=== PATIENT | female | born 1950 | race Caucasian/White ===

== ENCOUNTER → 2021-05-03 | Outpatient (CLI) | payer OTHER ==
[~2021-05-03] MED LIST: BAYER PLUS 500500 MG PO; HYDROCHLOROTH12.5 M2 PO; LISINOPRIL10 MG PO; METFORMIN HCL500 MG PO; ROSUVASTATIN CAL5 MG PO
== END ==
LOC: LAB 05:35
PROVIDERS: ATTEND Student in an Organized Health Care Education/Training Program
DX: Z01.812 Encounter for preprocedural laboratory examination (principal); Z20.822 Contact with and (suspected) exposure to COVID-19

== ENCOUNTER → 2021-05-05 | Outpatient (CLI) | payer OTHER ==
[~2021-05-05] VITALS: Ht 149.9 cm; Wt 124.7 kg
--- NOTE | ~2021-05-05 | P ---
[facility] [place] [address] PROCEDURE REPORT Name: RADHA JUDGE Room #: REG IRMA DozierJuaquin#: [id number] Admission: 05/05/21 Attend Phys: Wayne Mcgovern Discharge: Date of : 50 Report #: [id number] THIS REPORT FOR: cc: Marely Hopson MD,Wayne Theodore MD, MD ~ cc: Marely Hopson MD DATE OF SERVICE: 05/05/2021 PROCEDURE PERFORMED: Colonoscopy with biopsies. HISTORY OF PRESENT ILLNESS: The patient is a 70-year-old female, last colonoscopy was in 2009. Mild diverticulosis was noted, otherwise negative. No family history of colon cancer. The patient denies any symptoms. Plan is for colonoscopy. DESCRIPTION OF PROCEDURE: The risks and benefits of the procedure were explained to the patient, those risks including but not limited to bleeding, perforation and the risk of sedation. She understood these risks and gave informed consent. Sedation was given using propofol per Anesthesia. Next, a digital rectal exam was initially performed, which was normal. Next, using a standard Olympus colonoscope, the scope was placed in the patient's anus and advanced under direct vision to the cecum. The overall prep was good. The cecum and ileocecal valve were normal in appearance. The ascending colon was normal. In the transverse colon, a 3 mm sessile polyp was noted. This was removed with cold forceps, otherwise normal. The descending colon was normal. A few small scattered diverticula were noted in the sigmoid colon. No evidence of inflammation. The rectal mucosa was normal. On retroflexion, small nonbleeding internal hemorrhoids were noted. The scope was then withdrawn and the procedure terminated. The patient tolerated the procedure well. IMPRESSION: 1. Small transverse colon polyp. 2. Sigmoid diverticulosis. 3. Internal hemorrhoids. 4. Otherwise, normal colonoscopy. RECOMMENDATIONS: 1. Await biopsy results. 2. If the polyp is hyperplastic, repeat in 10 years; if adenomatous polyp, repeat in 5 years. [facility] [address] [place] [address] PROCEDURE REPORT Name: NURADHA SADIQ Room #: REG [facility]OSPITALHerminio#: [id number] Admission: 05/05/21 Attend Phys: Wayne Mcgovern Discharge: Date of : 50 Report #: [id number] Thank you for allowing me to participate in her care. By: [id number] [id number] Wayne Heaton MD /nt
--- NOTE | 2021-05-10 13:07 | PATH ---
[facility] [address] [place] [address] PATHOLOGY RPT PROCEDURE Name: PAIGE JUDGE Room #: REG [facility]OSPITALHelen.#: [id number] Admission: 05/05/21 Date of : 50 Discharge: Report #: [id number] Path Case #: [id number] [facility] Accession Number: [id number] . 01 Material submitted: . colon - TRANSVERSE COLON POLYP. Modifiers: transverse . 01 Clinical history: . COLONOSCOPY SCREENING, COLON CANCER . 02 Diagnosis: Transverse colon polyp, polypectomy: - Polypoid colonic mucosa with melanosis coli. - Negative for adenomatous change or malignancy. (ANK:tadeo; 05/07/2021) QMS 05/07/2021 [facility] Local . 02 Electronically signed: . Mary Clayton MD, Pathologist NPI- [id number] . 01 Gross description: . Received in formalin labeled "Franck, Paige, transverse polyp" is a fragment of carranza-brown soft tissue measuring 0.3 x 0.3 x 0.1 cm. The specimen is submitted entirely in A1. ([facility]; 05/06/2021) [facility]/06/2021 [facility] Local . 02 Pathologist provided ICD-10: K63.89 . 02 CPT . 790904 Specimen Comment: A courtesy copy of this report has been sent to [phone] Specimen Comment: [phone] Specimen Comment: Report sent to / DR PASCUAL Specimen Comment: A duplicate report has been generated due to demographic updates. Performed at: [facility] [address] [place] [address] [address], [place] [id number] MD Zay Boone MD Phone: [phone] Performed at: [address] [id number] MD Gloria Richardson MD Phone: [phone]
== END | disposition home or self-care (01) ==
LOC: GI
PROVIDERS: ATTEND Specialist
DX: K63.89 Other specified diseases of intestine (principal); K57.30 Diverticulosis of large intestine without perforation or abscess without bleeding; K64.8 Other hemorrhoids; I12.9 Hypertensive chronic kidney disease with stage 1 through stage 4 chronic kidney disease, or unspecified chronic kidney disease; E11.22 Type 2 diabetes mellitus with diabetic chronic kidney disease; N18.2 Chronic kidney disease, stage 2 (mild); E66.9 Obesity, unspecified; Z98.890 Other specified postprocedural states; Z79.899 Other long term (current) drug therapy; Z98.51 Tubal ligation status; Z68.43 Body mass index [BMI] 50.0-59.9, adult
CPT/HCPCS: 62110; 62900